=== PATIENT | male | born 1960 | race Two or more races ===

== ENCOUNTER 2018-12-24 11:52 | Day surgery (SDC) | payer OTHER ==
[2018-12-23 11:17] VITALS: BMI 27.3
[~2018-12-24] VITALS: Ht 177.8 cm; Wt 89.2 kg
[2018-12-24] VITALS (14 sets, daily range): BP systolic 109–135; BP diastolic 68–79; PULSE 70–88; RESP 12–20; Ht 177.8 cm; Wt 89.2 kg
[~2018-12-24 11:52] MED LIST: SOD CHLORIDE 0.9% 1,000 ML IV SCH
[2018-12-24] MEDS ORDERED: LISI40TA3 PO (13:43)
[2018-12-24] MEDS ORDERED: ASPI-903 PO (13:43)
[2018-12-24] MEDS ORDERED: AMLO-147 PO (13:43)
[2018-12-24] MEDS ORDERED: METO-429 PO (13:43)
[2018-12-24] MEDS ORDERED: ATOR40TA68 PO (13:43)
[2018-12-24] MEDS ORDERED: VERAPAMIL 5 MG INJ ONE (15:21)
[2018-12-24] MEDS ORDERED: IODIXANOL LOCM 100 ML BTL ONE (15:21)
[2018-12-24] MEDS ORDERED: FENTAnyl 50 MCG/ML VIAL ONE (15:21)
[2018-12-24] MEDS ORDERED: LIDOCAINE 1% (MDV) 20 ML INJ ONE (15:21)
[2018-12-24] MEDS ORDERED: MIDAZOLAM 1 MG/ML 2 ML INJ ONE (15:21)
[2018-12-24] MEDS ORDERED: HEPARIN 1000 UNITS/ML 10 ML INJ ONE (15:21)
[2018-12-24] MEDS ORDERED: SOD CHLORIDE 0.9% 500 ML ONE (15:23)
[2018-12-24] MEDS ORDERED: NITROGLYCERIN (IC) 100 MCG/ML INJ ONE (15:42)
[2018-12-24] MEDS ORDERED: SOD CHLORIDE 0.9% 1,000 ML IV SCH (16:54)
--- NOTE | 2018-12-24 17:02 | OPR ---
Date/Time of Note Date/Time of Note DATE: 12/24/18 TIME: 16:55 Operative Report Procedure Date: December 24, 2018 Preoperative Diagnosis Coronary artery disease Postoperative Diagnosis Multi-vessel obstructive coronary artery disease Operation/Procedure Performed left heart catheterization via R femoral approach (unable to access R radial artery) Surgeon see signature line Referral Nurse none Anesthesia Type: moderate sedation Estimated Blood Loss: none Transfusion none Specimen none Grafts/Implants none Complications none Disposition: PACU Procedure Description DESCRIPTION OF PROCEDURE: The patient placed on night monitor, pulse oximetry and supplemental oxygen as necessary. The right groin was prepped and draped in a sterile fashion and infiltrated with 1% lidocaine. Via the [place], the right femoral artery was accessed. A 5-[place] sheath was inserted and through this the right coronary catheter and left coronary catheter and pigtail were advanced into the right coronary artery and left coronary artery and the left ventricle. Placement confirmed by fluoroscopy and hemodynamics. CATHETERIZATION FINDINGS: 1. Left main: No significant disease. 2. LAD: small caliber vessel disease with proximal 80%, with mid 90% disease 3. Circumflex: small caliber vessel with 50% diffuse disease 4. Obtuse marginal: small caliber vessel with ostial 90% disease 5. RCA: medium caliber vessel with patent proximal stent, 80% mid vessel disease, and occluded PDA stent with left to right collaterals. HEMODYNAMICS: LVEDP 12 mmHg. No significant aortic valve gradient on pigtail pullback. COMPLICATIONS: None. FINAL RESULTS: Multi-vessel obstructive coronary artery disease RECOMMENDATIONS: Evaluation for possible CABG Discharge home [facility] December 24, 2018 17:02
--- NOTE | 2018-12-24 18:52 | RADRPT ---
Vent Rate: 89 bpm RR Interval: 676 msec DE Interval: 148 msec QRS Duration: 92 msec QT Interval: 382 msec QTC Interval: 465 msec P-R-T [place]: 43 - -60 - 25 degrees Sinus rhythm...normal P axis, V-rate 50- 99 Inferior infarct, old...Q >35mS, II III aVF Electronically Signed By: Michael Olsen
== END 2018-12-24 21:10 | disposition home or self-care (01) ==
LOC: SDS 11:52
PROVIDERS: ATTEND Internal Medicine
DX: I25.10 Atherosclerotic heart disease of native coronary artery without angina pectoris (principal); I10 Essential (primary) hypertension; R94.39 Abnormal result of other cardiovascular function study; Z79.82 Long term (current) use of aspirin
CPT/HCPCS: 80048; 82962; 85025; 85610; 93005; 93458; C1887; C1894; J1644; J2250; J3010; J7040; Q9967; Z7610